=== PATIENT | female | born 1960 | race Two or more races ===

== ENCOUNTER 2023-11-07 18:37 | Inpatient (IN) | payer OTHER ==
[~2023-11-07] VITALS: Ht 157.5 cm; Wt 98.5 kg
[2023-11-07] MEDS: ONDANSETRON HCL 4 MG/2 ML VIAL IV ONE (00:15)
[2023-11-07] MEDS: MORPHINE SULFATE 4 MG/ML SYR/VIAL IV ONE (00:15)
[2023-11-07] MEDS: VANCOMYCIN 1GM/200ML 200 ML IV ONE (00:15)
[2023-11-07 19:38] LABS: Basophils # (auto) 0.1 10 ^3/uL (0-0.2); Basophils % (auto) 0.6 % (0.0-2.0); Eosinophils # (auto) 0.1 10 ^3/uL (0-0.8); Eosinophils % (auto) 0.9 % (0.0-7.0); Hematocrit 35.3 % (36.0-46.0); Hemoglobin 11.1 g/dL (12.2-16.2); Lymphocytes # (auto) 3.2 10 ^3/uL (0.4-5.4); Lymphocytes % (auto) 26.6 % (10.0-50.0); Mean Corpuscular Hemoglobin 26.8 pg (28.0-32.0); Mean Corpuscular Hgb Conc. 31.4 g/dL (32.0-36.0); Mean Corpuscular Volume 85.4 fL (80.0-100.0); Monocytes % (auto) 8.4 % (0.0-12.0); Neutrophils # (auto) 7.7 10 ^3/uL (1.6-8.6); Neutrophils % (auto) 63.5 % (37.0-80.0); Platelet Count (auto) 478 10^3/uL (140-450); Red Blood Cells 4.14 10^6/uL (4.0-5.20); Red Cell Distribution Width 15.4 % (11.8-14.3); White Blood Cell 12.2 10^3/uL (4.4-10.8)
[2023-11-07 19:57] LABS: Chloride 107 mmol/L (98-107); Potassium 3.9 mmol/L (3.5-5.1); Sodium 140 mmol/L (136-145)
[2023-11-07 19:58] LABS: Anion Gap 8 (5-15); Calcium 9.9 mg/dL (8.7-10.4); Carbon Dioxide 25 mmol/L (20-30)
[2023-11-07 20:03] LABS: BUN/Creatinine Ratio 23.2 (10.0-20.0); Blood Urea Nitrogen 33 mg/dL (9-23); Glucose 120 mg/dL (74-106)
[2023-11-07 20:10] LABS: Lactic Acid w/Reflex 2.2 mmol/L (0.4-2.0)
[2023-11-07] MEDS ORDERED: ACETAMINOPHEN 325 MG TAB PO PRN (23:00)
[2023-11-07] MEDS ORDERED: TEMAZEPAM 15 MG CAP PO PRN (23:00)
[2023-11-08] VITALS: PULSE 86; RESP 16; O2SAT 97
[2023-11-08] MEDS: FUROSEMIDE 40 MG/4 ML VIAL IV ONE (00:15)
[2023-11-08] MEDS: HYDROcodone-ACET 5/325MG TAB PO PRN (04:27)
[2023-11-08] MEDS: CLINDAMYCIN 600MG IV 50 ML IV SCH (05:35)
[2023-11-08] MEDS: FUROSEMIDE 20 MG/2 ML VIAL IV SCH (05:37)
[2023-11-08] MEDS ORDERED: FUROSEMIDE 40 MG TAB PO SCH (06:00)
[2023-11-08] MEDS: EMPAGLIFLOZIN 10 MG TAB PO SCH (10:08)
[2023-11-08] MEDS: METOPROLOL SUCCINATE XL 50 MG TAB PO SCH (10:29)
[2023-11-08] MEDS: ENOXAPARIN SOD 40 MG/0.4 ML SYRINGE SC SCH (10:29)
[2023-11-08] MEDS: LISINOPRIL 20 MG TAB PO SCH (10:30)
[2023-11-08 11:10] LABS: Basophils # (auto) 0.1 10 ^3/uL (0-0.2); Basophils % (auto) 0.6 % (0.0-2.0); Eosinophils # (auto) 0.1 10 ^3/uL (0-0.8); Eosinophils % (auto) 0.8 % (0.0-7.0); Hematocrit 33.4 % (36.0-46.0); Hemoglobin 10.4 g/dL (12.2-16.2); Lymphocytes # (auto) 2.2 10 ^3/uL (0.4-5.4); Lymphocytes % (auto) 18.9 % (10.0-50.0); Mean Corpuscular Hemoglobin 26.3 pg (28.0-32.0); Mean Corpuscular Hgb Conc. 31.1 g/dL (32.0-36.0); Mean Corpuscular Volume 84.6 fL (80.0-100.0); Monocytes # (auto) 1.2 10 ^3/uL (0-1.3); Monocytes % (auto) 10.3 % (0.0-12.0); Neutrophils % (auto) 69.4 % (37.0-80.0); Platelet Count (auto) 410 10^3/uL (140-450); Red Blood Cells 3.95 10^6/uL (4.0-5.20); Red Cell Distribution Width 15.7 % (11.8-14.3); White Blood Cell 11.5 10^3/uL (4.4-10.8)
[2023-11-08 11:27] LABS: Alanine Aminotransferase 14 U/L (7-40); Alkaline Phosphatase 99 U/L (46-116); Anion Gap 10 (5-15); Aspartate Aminotransferase 12 U/L (13-40); BUN/Creatinine Ratio 21.8 (10.0-20.0); Blood Urea Nitrogen 27 mg/dL (9-23); Calcium 10.1 mg/dL (8.7-10.4); Carbon Dioxide 23 mmol/L (20-30); Chloride 107 mmol/L (98-107); Cholesterol 142 mg/dL (< 200); Glucose 109 mg/dL (74-106); LDL Cholesterol 83 mg/dL (< 100); Potassium 3.9 mmol/L (3.5-5.1); Sodium 140 mmol/L (136-145); Triglycerides 198 mg/dL (< 150)
[2023-11-08 11:28] LABS: Bilirubin, Total 0.4 mg/dL (0.2-1.0); HDL Cholesterol 36 mg/dL (40-59); Total Protein 6.7 g/dL (5.7-8.2)
[2023-11-08] MEDS: HYDROmorphone HCL 2 MG/ML VL/or syr IV ONE (16:36)
[2023-11-08] MEDS: MEROPENEM 1GM IVPB 50 ML IV ONE (16:37)
[2023-11-08 17:05] VITALS: PULSE 84; RESP 18; O2SAT 98
[2023-11-08] MEDS ORDERED: LISI40TA16 PO (17:28)
[2023-11-08] MEDS ORDERED: PANT40T PO (17:28)
[2023-11-08] MEDS ORDERED: FURO40TA4 PO (17:28)
[2023-11-08] MEDS ORDERED: HYDR-4072 PO (17:28)
[2023-11-08] MEDS ORDERED: FUROSEMIDE 40 MG/4 ML VIAL IV SCH (18:00)
[2023-11-08 20:10] VITALS: PULSE 75; RESP 19; O2SAT 97
[2023-11-08 21:00] VITALS: BP 110/50; PULSE 75; RESP 19; TEMP 97.7; O2SAT 97
[2023-11-08] MEDS ORDERED: MEROPENEM 1GM IVPB 50 ML IV SCH (22:00)
[2023-11-09] VITALS (7 sets, daily range): BP systolic 110–157; BP diastolic 49–81; PULSE 72–84; RESP 20; TEMP 97.5–98.6; O2SAT 92–98
[2023-11-09] MEDS: CLINDAMYCIN 600MG IV 50 ML IV SCH (00:30)
[2023-11-09] MEDS: HYDROmorphone HCL 2 MG/ML VL/or syr IV PRN (00:54)
[2023-11-09] MEDS: MEROPENEM 1GM IVPB 50 ML IV SCH ×2 (02:00→10:07)
[2023-11-09] MEDS: FUROSEMIDE 40 MG/4 ML VIAL IV SCH (06:52)
[2023-11-09 07:21] LABS: Basophils # (auto) 0.1 10 ^3/uL (0-0.2); Basophils % (auto) 0.6 % (0.0-2.0); Eosinophils # (auto) 0.1 10 ^3/uL (0-0.8); Eosinophils % (auto) 1.5 % (0.0-7.0); Hematocrit 30.2 % (36.0-46.0); Hemoglobin 9.9 g/dL (12.2-16.2); Lymphocytes # (auto) 2.4 10 ^3/uL (0.4-5.4); Lymphocytes % (auto) 23.6 % (10.0-50.0); Mean Corpuscular Hemoglobin 27.1 pg (28.0-32.0); Mean Corpuscular Hgb Conc. 32.9 g/dL (32.0-36.0); Mean Corpuscular Volume 82.5 fL (80.0-100.0); Monocytes % (auto) 9.4 % (0.0-12.0); Neutrophils # (auto) 6.6 10 ^3/uL (1.6-8.6); Neutrophils % (auto) 64.9 % (37.0-80.0); Platelet Count (auto) 385 10^3/uL (140-450); Red Blood Cells 3.66 10^6/uL (4.0-5.20); White Blood Cell 10.2 10^3/uL (4.4-10.8)
[2023-11-09 07:25] LABS: Alanine Aminotransferase 13 U/L (7-40); Alkaline Phosphatase 90 U/L (46-116); Anion Gap 6 (5-15); Aspartate Aminotransferase 13 U/L (13-40); Bilirubin, Total 0.5 mg/dL (0.2-1.0); Blood Urea Nitrogen 29 mg/dL (9-23); Calcium 9.9 mg/dL (8.7-10.4); Carbon Dioxide 27 mmol/L (20-30); Chloride 108 mmol/L (98-107); Glucose 125 mg/dL (74-106); Potassium 4.1 mmol/L (3.5-5.1); Sodium 141 mmol/L (136-145)
[2023-11-09 07:28] LABS: Albumin 3.6 g/dL (3.2-4.8)
[2023-11-09] MEDS: LISINOPRIL 20 MG TAB PO SCH (10:09)
[2023-11-09 17:10] LABS: Urine Bacteria None Seen /hpf (None Seen)
[2023-11-09 17:31] LABS: Protein, Urine 8.5 mg/dL (0.0-11.9)
[2023-11-09 17:33] LABS: Creatinine, Urine 60.64 mg/dL (30.0-125.0)
[2023-11-09 17:34] LABS: Amphetamine Screen, Urine Neg (NEGATIVE); Barbiturate Scree,Urine Neg (NEGATIVE); Benzodiazephine Screen, Urine Neg (NEGATIVE); Cannabinoid Screen, Urine Neg (NEGATIVE); Cocaine Screen, Urine Neg (NEGATIVE); Opiate Scree,Urine Neg (NEGATIVE); Phencyclidine Screen, Urine Neg (NEGATIVE)
[2023-11-09 17:43] LABS: Urine Blood Negative /uL (Negative); Urine Clarity Clear (Clear); Urine Color Light-Yellow (Yellow); Urine Protein, UAD Negative (Negative); Urine Specific Gravity 1.012 (1.001-1.035); Urine Urobilinogen Normal (Negative); Urine WBC 1 /hpf (0 - 5); Urine pH 5.5 (5.0-9.0)
[2023-11-09] MEDS: FUROSEMIDE 40 MG TAB PO SCH (18:03)
[2023-11-09] MEDS: ATORVASTATIN 20 MG TAB PO SCH (22:01)
[2023-11-10] VITALS (7 sets, daily range): BP systolic 100–148; BP diastolic 50–62; PULSE 63–85; RESP 15–20; TEMP 97.5–99.2; O2SAT 95–100
[2023-11-10 06:30] LABS: Basophils # (auto) 0.1 10 ^3/uL (0-0.2); Eosinophils # (auto) 0.2 10 ^3/uL (0-0.8); Eosinophils % (auto) 2.1 % (0.0-7.0); Monocytes # (auto) 1.1 10 ^3/uL (0-1.3)
[2023-11-10 06:35] LABS: Basophils % (auto) 0.9 % (0.0-2.0); Hematocrit 32.7 % (36.0-46.0); Hemoglobin 10.2 g/dL (12.2-16.2); Lymphocytes % (auto) 26.1 % (10.0-50.0); Mean Corpuscular Hemoglobin 26.4 pg (28.0-32.0); Mean Corpuscular Hgb Conc. 31.2 g/dL (32.0-36.0); Mean Corpuscular Volume 84.5 fL (80.0-100.0); Monocytes % (auto) 9.3 % (0.0-12.0); Neutrophils # (auto) 7.1 10 ^3/uL (1.6-8.6); Neutrophils % (auto) 61.6 % (37.0-80.0); Platelet Count (auto) 416 10^3/uL (140-450); Red Blood Cells 3.87 10^6/uL (4.0-5.20); Red Cell Distribution Width 15.3 % (11.8-14.3); White Blood Cell 11.5 10^3/uL (4.4-10.8)
[2023-11-10 06:49] LABS: Alanine Aminotransferase 16 U/L (7-40); Albumin 3.9 g/dL (3.2-4.8); Alkaline Phosphatase 89 U/L (46-116); Anion Gap 9 (5-15); Aspartate Aminotransferase 12 U/L (13-40); BUN/Creatinine Ratio 15.3 (10.0-20.0); Bilirubin, Total 0.5 mg/dL (0.2-1.0); Blood Urea Nitrogen 18 mg/dL (9-23); Calcium 9.9 mg/dL (8.7-10.4); Carbon Dioxide 23 mmol/L (20-30); Chloride 107 mmol/L (98-107); Glucose 110 mg/dL (74-106); Sodium 139 mmol/L (136-145); Total Protein 6.6 g/dL (5.7-8.2)
[2023-11-10] MEDS ORDERED: DOCU-94 PO (13:54)
[2023-11-10] MEDS ORDERED: BACL10TA PO (13:54)
[2023-11-10] MEDS ORDERED: NALO4SPR2 (13:54)
[2023-11-10] MEDS ORDERED: TIZA4CAP PO (13:54)
[2023-11-10] MEDS: PANTOPRAZOLE 40 MG TAB PO ONE (22:34)
[2023-11-11 01:06] VITALS: BP 120/63; PULSE 71; RESP 19; TEMP 97.8; O2SAT 94
[2023-11-11 05:00] VITALS: BP 130/52; PULSE 70; RESP 21; TEMP 97.4; O2SAT 97
[2023-11-11 06:09] LABS: Basophils # (auto) 0.1 10 ^3/uL (0-0.2); Basophils % (auto) 0.5 % (0.0-2.0); Eosinophils # (auto) 0.2 10 ^3/uL (0-0.8); Eosinophils % (auto) 2.3 % (0.0-7.0); Hematocrit 30.6 % (36.0-46.0); Hemoglobin 10.2 g/dL (12.2-16.2); Lymphocytes % (auto) 29.1 % (10.0-50.0); Mean Corpuscular Hemoglobin 27.5 pg (28.0-32.0); Mean Corpuscular Hgb Conc. 33.2 g/dL (32.0-36.0); Monocytes # (auto) 0.9 10 ^3/uL (0-1.3); Monocytes % (auto) 8.5 % (0.0-12.0); Neutrophils # (auto) 6.2 10 ^3/uL (1.6-8.6); Neutrophils % (auto) 59.6 % (37.0-80.0); Nucleated Red Blood Cells % 0.1 %; Platelet Count (auto) 370 10^3/uL (140-450); Red Blood Cells 3.69 10^6/uL (4.0-5.20); White Blood Cell 10.4 10^3/uL (4.4-10.8)
[2023-11-11 06:28] LABS: Albumin 3.8 g/dL (3.2-4.8); Alkaline Phosphatase 87 U/L (46-116); Anion Gap 6 (5-15); BUN/Creatinine Ratio 22.5 (10.0-20.0); Blood Urea Nitrogen 25 mg/dL (9-23); Calcium 10.1 mg/dL (8.7-10.4); Carbon Dioxide 26 mmol/L (20-30); Chloride 107 mmol/L (98-107); Glucose 106 mg/dL (74-106); Potassium 3.8 mmol/L (3.5-5.1); Sodium 139 mmol/L (136-145)
[2023-11-11 06:29] LABS: Alanine Aminotransferase < 9 U/L (7-40); Aspartate Aminotransferase 11 U/L (13-40); Bilirubin, Total 0.5 mg/dL (0.2-1.0); Total Protein 6.3 g/dL (5.7-8.2)
[2023-11-11 09:06] VITALS: BP 130/70; PULSE 75; TEMP 98.3; O2SAT 93
[2023-11-11] MEDS: ONDANSETRON HCL 4 MG/2 ML VIAL IV PRN (10:46)
[2023-11-11 12:33] VITALS: BP 117/75; PULSE 66; RESP 16; TEMP 97.5; O2SAT 97
[2023-11-11 17:00] VITALS: BP 113/56; PULSE 65; RESP 16; TEMP 97.4; O2SAT 100
[2023-11-11 21:00] VITALS: BP 132/76; PULSE 79; RESP 20; TEMP 97.6; O2SAT 98
[2023-11-11] MEDS: PREGABALIN 25 MG CAP PO SCH (21:52)
[2023-11-12] VITALS (7 sets, daily range): BP systolic 100–146; BP diastolic 40–65; PULSE 66–82; RESP 15–19; TEMP 97.4–98.8; O2SAT 90–97
[2023-11-12 07:15] LABS: Alanine Aminotransferase 12 U/L (7-40); Alkaline Phosphatase 79 U/L (46-116); Anion Gap 6 (5-15); BUN/Creatinine Ratio 23.8 (10.0-20.0); Blood Urea Nitrogen 29 mg/dL (9-23); Calcium 9.5 mg/dL (8.7-10.4); Carbon Dioxide 26 mmol/L (20-30); Chloride 108 mmol/L (98-107); Glucose 101 mg/dL (74-106); Potassium 4.4 mmol/L (3.5-5.1); Sodium 140 mmol/L (136-145)
[2023-11-12 07:16] LABS: Albumin 3.7 g/dL (3.2-4.8); Aspartate Aminotransferase 9 U/L (13-40); Bilirubin, Total 0.4 mg/dL (0.2-1.0); Total Protein 6.1 g/dL (5.7-8.2)
[2023-11-12 07:18] LABS: Basophils # (auto) 0 10 ^3/uL (0-0.2); Basophils % (auto) 0.4 % (0.0-2.0); Eosinophils # (auto) 0.2 10 ^3/uL (0-0.8); Eosinophils % (auto) 2.1 % (0.0-7.0); Hemoglobin 9.5 g/dL (12.2-16.2); Lymphocytes # (auto) 2.4 10 ^3/uL (0.4-5.4); Lymphocytes % (auto) 22.9 % (10.0-50.0); Mean Corpuscular Hemoglobin 26.3 pg (28.0-32.0); Mean Corpuscular Hgb Conc. 31.8 g/dL (32.0-36.0); Mean Corpuscular Volume 82.7 fL (80.0-100.0); Monocytes # (auto) 0.9 10 ^3/uL (0-1.3); Monocytes % (auto) 8.9 % (0.0-12.0); Neutrophils % (auto) 65.7 % (37.0-80.0); Platelet Count (auto) 398 10^3/uL (140-450); Red Blood Cells 3.63 10^6/uL (4.0-5.20); Red Cell Distribution Width 15.5 % (11.8-14.3); White Blood Cell 10.6 10^3/uL (4.4-10.8)
[2023-11-13] VITALS (7 sets, daily range): BP systolic 108–136; BP diastolic 41–81; PULSE 67–88; RESP 15–20; TEMP 97.9–98.5; O2SAT 92–98
[2023-11-13 06:33] LABS: Basophils # (auto) 0.1 10 ^3/uL (0-0.2); Basophils % (auto) 0.6 % (0.0-2.0); Eosinophils # (auto) 0.3 10 ^3/uL (0-0.8); Eosinophils % (auto) 2.7 % (0.0-7.0); Hematocrit 28.9 % (36.0-46.0); Hemoglobin 9.3 g/dL (12.2-16.2); Lymphocytes # (auto) 2.6 10 ^3/uL (0.4-5.4); Lymphocytes % (auto) 27.3 % (10.0-50.0); Mean Corpuscular Hemoglobin 26.7 pg (28.0-32.0); Mean Corpuscular Hgb Conc. 32.1 g/dL (32.0-36.0); Mean Corpuscular Volume 83.3 fL (80.0-100.0); Monocytes # (auto) 0.8 10 ^3/uL (0-1.3); Monocytes % (auto) 7.8 % (0.0-12.0); Neutrophils # (auto) 5.9 10 ^3/uL (1.6-8.6); Neutrophils % (auto) 61.6 % (37.0-80.0); Platelet Count (auto) 363 10^3/uL (140-450); Red Blood Cells 3.47 10^6/uL (4.0-5.20); Red Cell Distribution Width 15.2 % (11.8-14.3); White Blood Cell 9.6 10^3/uL (4.4-10.8)
[2023-11-13 07:13] LABS: Chloride 108 mmol/L (98-107); Potassium 4.2 mmol/L (3.5-5.1); Sodium 139 mmol/L (136-145)
[2023-11-13 07:14] LABS: Anion Gap 2 (5-15); Carbon Dioxide 29 mmol/L (20-30)
[2023-11-13 07:15] LABS: Calcium 9.7 mg/dL (8.7-10.4)
[2023-11-13 07:19] LABS: Glucose 109 mg/dL (74-106)
[2023-11-13 07:20] LABS: BUN/Creatinine Ratio 24.2 (10.0-20.0); Blood Urea Nitrogen 31 mg/dL (9-23)
[2023-11-13] MEDS: FUROSEMIDE 20 MG TAB PO SCH (09:40)
[2023-11-13] MEDS ORDERED: MEROPENEM 1GM IVPB 50 ML IV SCH (13:00)
[2023-11-13] MEDS: PREGABALIN 25 MG CAP PO SCH (13:45)
[2023-11-13] MEDS: HYDROcodone-ACET 10/325MG TAB PO SCH (13:47)
[2023-11-14] VITALS (8 sets, daily range): BP systolic 120–140; BP diastolic 53–74; PULSE 59–89; RESP 16–21; TEMP 97.2–98.9; O2SAT 93–99
[2023-11-14 07:23] LABS: Basophils # (auto) 0.1 10 ^3/uL (0-0.2); Eosinophils # (auto) 0.3 10 ^3/uL (0-0.8); Hemoglobin 9.5 g/dL (12.2-16.2); Lymphocytes # (auto) 2.3 10 ^3/uL (0.4-5.4); Monocytes # (auto) 0.8 10 ^3/uL (0-1.3); Platelet Count (auto) 338 10^3/uL (140-450)
[2023-11-14 07:26] LABS: Basophils % (auto) 0.6 % (0.0-2.0); Eosinophils % (auto) 2.9 % (0.0-7.0); Hematocrit 29.8 % (36.0-46.0); Lymphocytes % (auto) 22.2 % (10.0-50.0); Mean Corpuscular Hemoglobin 26.6 pg (28.0-32.0); Mean Corpuscular Hgb Conc. 31.9 g/dL (32.0-36.0); Mean Corpuscular Volume 83.3 fL (80.0-100.0); Monocytes % (auto) 7.9 % (0.0-12.0); Neutrophils % (auto) 66.4 % (37.0-80.0); Red Blood Cells 3.57 10^6/uL (4.0-5.20); Red Cell Distribution Width 15.4 % (11.8-14.3); White Blood Cell 10.5 10^3/uL (4.4-10.8)
[2023-11-14 07:46] LABS: Alanine Aminotransferase 11 U/L (7-40); Albumin 3.6 g/dL (3.2-4.8); Alkaline Phosphatase 82 U/L (46-116); Anion Gap 3 (5-15); Aspartate Aminotransferase 12 U/L (13-40); BUN/Creatinine Ratio 23.6 (10.0-20.0); Bilirubin, Total 0.3 mg/dL (0.2-1.0); Blood Urea Nitrogen 26 mg/dL (9-23); Calcium 10.1 mg/dL (8.7-10.4); Carbon Dioxide 27 mmol/L (20-30); Chloride 109 mmol/L (98-107); Glucose 109 mg/dL (74-106); Potassium 5.1 mmol/L (3.5-5.1); Sodium 139 mmol/L (136-145); Total Protein 6.1 g/dL (5.7-8.2)
[2023-11-14 08:59] LABS: INR 0.97 (0.9-1.15); Prothrombin Time 10.3 sec (9.3-11.8)
[2023-11-14] MEDS: cefTRIAXone 1GM/50ML D5W 50 ML IV SCH (09:53)
[2023-11-14] MEDS: LIDOCAINE 1%HCL (LOCAL ANESTH) 10 ML MDV IJ ONE (12:57)
[2023-11-14] MEDS: LIDOCAINE 1% HCL (LOCAL ANESTH.) INJ 20ML MDV ONE (14:48)
[2023-11-14] MEDS: MORPHINE SULFATE INJ 2 MG/ml SYRG IV PRN (17:51)
[2023-11-15 01:00] VITALS: BP 113/56; PULSE 80; RESP 20; TEMP 98.2; O2SAT 95
[2023-11-15 05:03] VITALS: BP 117/59; PULSE 65; RESP 19; TEMP 97.7; O2SAT 96
[2023-11-15 09:00] VITALS: BP 135/82; PULSE 80; RESP 24; TEMP 98.1; O2SAT 98
[2023-11-15 10:24] LABS: Basophils # (auto) 0.1 10 ^3/uL (0-0.2); Basophils % (auto) 0.6 % (0.0-2.0); Eosinophils # (auto) 0.2 10 ^3/uL (0-0.8); Eosinophils % (auto) 1.8 % (0.0-7.0); Hematocrit 30.1 % (36.0-46.0); Hemoglobin 9.8 g/dL (12.2-16.2); Lymphocytes % (auto) 19.8 % (10.0-50.0); Mean Corpuscular Hemoglobin 27.1 pg (28.0-32.0); Mean Corpuscular Hgb Conc. 32.5 g/dL (32.0-36.0); Mean Corpuscular Volume 83.4 fL (80.0-100.0); Monocytes # (auto) 0.9 10 ^3/uL (0-1.3); Monocytes % (auto) 8.7 % (0.0-12.0); Neutrophils % (auto) 69.1 % (37.0-80.0); Platelet Count (auto) 352 10^3/uL (140-450); Red Blood Cells 3.61 10^6/uL (4.0-5.20); Red Cell Distribution Width 15.3 % (11.8-14.3); White Blood Cell 10.1 10^3/uL (4.4-10.8)
[2023-11-15 10:25] LABS: Alanine Aminotransferase 19 U/L (7-40); Albumin 3.7 g/dL (3.2-4.8); Alkaline Phosphatase 90 U/L (46-116); Anion Gap 4 (5-15); Aspartate Aminotransferase 19 U/L (13-40); Blood Urea Nitrogen 30 mg/dL (9-23); Carbon Dioxide 26 mmol/L (20-30); Chloride 107 mmol/L (98-107); Glucose 122 mg/dL (74-106); Sodium 137 mmol/L (136-145)
[2023-11-15 10:26] LABS: Bilirubin, Total 0.4 mg/dL (0.2-1.0); Total Protein 6.5 g/dL (5.7-8.2)
[2023-11-15 13:00] VITALS: BP 100/90; PULSE 72; RESP 24; TEMP 98.7; O2SAT 96
[2023-11-15] MEDS: CLINDAMYCIN HCL 150 MG CAP PO SCH (13:37)
[2023-11-15 17:00] VITALS: BP 113/51; PULSE 60; RESP 22; TEMP 97.6; O2SAT 91
[2023-11-16 01:00] VITALS: BP 107/59; PULSE 67; RESP 20; TEMP 98; O2SAT 94
[2023-11-16 05:00] VITALS: BP 110/84; PULSE 70; RESP 18; TEMP 98.2; O2SAT 96
[2023-11-16 06:00] LABS: Basophils # (auto) 0.1 10 ^3/uL (0-0.2); Eosinophils # (auto) 0.3 10 ^3/uL (0-0.8); Eosinophils % (auto) 2.3 % (0.0-7.0); Hemoglobin 9.6 g/dL (12.2-16.2); Lymphocytes # (auto) 2.3 10 ^3/uL (0.4-5.4); Lymphocytes % (auto) 18.5 % (10.0-50.0); Mean Corpuscular Hemoglobin 26.5 pg (28.0-32.0)
[2023-11-16 06:02] LABS: Basophils % (auto) 0.5 % (0.0-2.0); Hematocrit 30.4 % (36.0-46.0); Mean Corpuscular Hgb Conc. 31.5 g/dL (32.0-36.0); Monocytes # (auto) 0.9 10 ^3/uL (0-1.3); Monocytes % (auto) 7.3 % (0.0-12.0); Neutrophils % (auto) 71.4 % (37.0-80.0); Platelet Count (auto) 343 10^3/uL (140-450); Red Blood Cells 3.62 10^6/uL (4.0-5.20); Red Cell Distribution Width 15.5 % (11.8-14.3); White Blood Cell 12.7 10^3/uL (4.4-10.8)
[2023-11-16 06:09] LABS: Alanine Aminotransferase 19 U/L (7-40); Alkaline Phosphatase 87 U/L (46-116); Anion Gap 7 (5-15); BUN/Creatinine Ratio 24.3 (10.0-20.0); Blood Urea Nitrogen 28 mg/dL (9-23); Calcium 9.7 mg/dL (8.7-10.4); Carbon Dioxide 23 mmol/L (20-30); Chloride 107 mmol/L (98-107); Glucose 127 mg/dL (74-106); Potassium 4.8 mmol/L (3.5-5.1); Sodium 137 mmol/L (136-145)
[2023-11-16 06:10] LABS: Albumin 3.6 g/dL (3.2-4.8); Aspartate Aminotransferase 16 U/L (13-40)
[2023-11-16 06:11] LABS: Bilirubin, Total 0.3 mg/dL (0.2-1.0); Total Protein 6.4 g/dL (5.7-8.2)
[2023-11-16 08:00] VITALS: BP 121/55; PULSE 64; RESP 24; TEMP 98; O2SAT 94
[2023-11-16 12:00] VITALS: BP 127/61; PULSE 69; RESP 24; TEMP 98; O2SAT 99
[2023-11-16] MEDS ORDERED: PREG50CA PO (12:45)
[2023-11-16] MEDS ORDERED: PREG50CA80 PO (12:47)
[2023-11-16] MEDS ORDERED: CLIN1CAP70 PO (12:47)
[2023-11-16] MEDS ORDERED: LEVO500T91 PO (12:47)
== END 2023-11-16 17:43 | disposition home or self-care (01) | DRG 720 ==
LOC: ER 18:37 → OVERFLOW 22:57 → WEST WING 11-08 17:00
PROVIDERS: ADMIT Internal Medicine; ATTEND Internal Medicine
PROC: 0Y9N0ZZ Drainage of Left Foot, Open Approach (ICD-10-PCS; principal; 2023-11-14 12:53)
DX: A41.9 Sepsis, unspecified organism (principal); N17.0 Acute kidney failure with tubular necrosis; I50.33 Acute on chronic diastolic (congestive) heart failure; L03.116 Cellulitis of left lower limb; S90.32XA Contusion of left foot, initial encounter; D64.9 Anemia, unspecified; E66.01 Morbid (severe) obesity due to excess calories; E78.5 Hyperlipidemia, unspecified; I11.0 Hypertensive heart disease with heart failure; M17.0 Bilateral primary osteoarthritis of knee; X58.XXXA Exposure to other specified factors, initial encounter; Z79.899 Other long term (current) drug therapy; Z88.8 Allergy status to other drugs, medicaments and biological substances; Y93.89 Activity, other specified; Y92.89 Other specified places as the place of occurrence of the external cause; Y99.8 Other external cause status; Z68.39 Body mass index [BMI] 39.0-39.9, adult
CPT/HCPCS: 36415; 71045; 73610; 73630; 73700; 80048; 80053; 80061; 80307; 81001; 82570; 83036; 83605; 83880; 84156; 84300; 84439; 84443; 85025; 85610; 86038; 86141; 86850; 86900; 86901; 87040; 93005; 93306; 93971; 96365; 96367; 96372; 96375; 97110; 97116; 97163; 97530; G0378; J2001; J2185; J2405; J3490